=== PATIENT | female | born 2000 | race Two or more races ===

== ENCOUNTER 2021-02-16 17:54 | Emergency (ER) | payer OTHER ==
[~2021-02-16] VITALS: Ht 165.1 cm; Wt 49.0 kg
== END 2021-02-16 19:44 | disposition home or self-care (01) ==
LOC: ER 17:54
DX: S61.243A Puncture wound with foreign body of left middle finger without damage to nail, initial encounter (principal); W46.0XXA Contact with hypodermic needle, initial encounter; Y93.89 Activity, other specified; Y92.69 Other specified industrial and construction area as the place of occurrence of the external cause; Y99.8 Other external cause status